=== PATIENT | male | born 2005 | race African-American/Black ===

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

== ENCOUNTER 2023-07-05 00:39 | Emergency (ER) | payer SELFPAY ==
[~2023-07-05] VITALS: Ht 185.4 cm; Wt 104.3 kg
== END 2023-07-05 03:03 | disposition home or self-care (01) ==
LOC: ED 00:39
DX: R55 Syncope and collapse (principal); E16.2 Hypoglycemia, unspecified

== ENCOUNTER 2024-02-11 12:12 | Emergency (ER) | payer SELFPAY ==
[~2024-02-11] VITALS: Ht 185.4 cm; Wt 111.1 kg
[2024-02-11] MEDS ORDERED: diphenhydrAMINE hydrochloride 50 MG/ML VIAL IV ONE (12:50)
[2024-02-11] MEDS ORDERED: ANTI-DIARRHEAL2 MG PO (12:50)
[2024-02-11] MEDS ORDERED: SODIUM CHLORIDE 0.9% 1,000 ML IV ONE (12:50)
[2024-02-11] MEDS ORDERED: Prochlorperazine Edisylate 10 MG/2 ML VIAL IV ONE (12:50)
[2024-02-11] MEDS ORDERED: Ondansetron4 MG PO (12:50)
[2024-02-11 13:04] LABS: EOS % 0.8 % (1.0-4.0); HEMATOCRIT 44.8 % (42.0-52.0); MEAN CELL VOLUME 88.2 fl (80.0-94.0); MEAN CORPUSCULAR HGB 29.7 pg (27.0-31.0); MEAN CORPUSCULAR HGB CONC 33.7 g/dl (33.0-37.0); MEAN PLATELET VOLUME 9.9 fl (9.6-12.3); MONO # 0.5 10*3/uL (0.1-1.0); MONO % 9.5 % (3.0-9.0); NEUT % 82.7 % (47.0-73.0); PLATELET COUNT AUTOMATED 237 10*3/uL (130-400); RED BLOOD COUNT 5.08 10*6/uL (4.50-5.90); RED CELL DISTRI WIDTH 13.8 % (0-14.5); WHITE BLOOD COUNT 4.8 10*3/uL (4.8-10.8)
[2024-02-11 13:23] LABS: BUN 14 mg/dl (9-23); CHLORIDE 105 mmol/L (98-107); POTASSIUM 4.1 mmol/L (3.4-5.1)
== END 2024-02-11 14:00 | disposition home or self-care (01) ==
LOC: ED 12:12
PROVIDERS: Emergency Medicine
DX: R11.2 Nausea with vomiting, unspecified (principal); R19.7 Diarrhea, unspecified

== ENCOUNTER 2024-09-07 10:03 | Emergency (ER) | payer SELFPAY ==
[~2024-09-07] VITALS: Ht 185.4 cm; Wt 104.3 kg
[~2024-09-07 10:03] MED LIST changes: +ANTI-DIARRHEAL2 MG PO; +Ondansetron4 MG PO
[2024-09-07 11:06] LABS: BASO # 0.0 10*3/uL (0.0-0.1); BASO % 0.3 % (0.0-1.0); EOS # 0.0 10*3/uL (0.0-0.4); EOS % 0.2 % (1.0-4.0); MEAN CELL VOLUME 88.0 fl (80.0-94.0); MEAN CORPUSCULAR HGB 30.1 pg (27.0-31.0); MEAN PLATELET VOLUME 9.5 fl (9.6-12.3); MONO # 0.9 10*3/uL (0.1-1.0); MONO % 15.1 % (3.0-9.0); NEUT # 4.1 10*3/uL (2.3-7.9); NEUT % 69.8 % (47.0-73.0); NUCLEATED RED BLOOD CELL 0.0 % (0.0-0.0); NUCLEATED RED BLOOD CELL 0.0 10*3/uL (0.0-0.0); PLATELET COUNT AUTOMATED 196 10*3/uL (130-400); RED CELL DISTRI WIDTH 13.5 % (0-14.5)
[2024-09-07 11:25] LABS: BUN 13 mg/dl (9-23)
[2024-09-07] MEDS ORDERED: MEDROL DOSEPAK4 MG PO (12:40)
== END 2024-09-07 12:44 | disposition home or self-care (01) ==
LOC: ED 10:03
PROVIDERS: Internal Medicine
DX: B34.9 Viral infection, unspecified (principal); Z79.899 Other long term (current) drug therapy